=== PATIENT | female | born 1945 | race Caucasian/White ===

== ENCOUNTER 2016-08-21 09:09 | Day surgery (SDC) | payer MEDICARE ==
--- NOTE | 2016-08-20 09:34 | HP ---
DATE OF CLINIC: 08/08/2016 SUPRIYA CARRILLO : 1945 PLANNED PROCEDURE: Left carpal tunnel release DATE OF PROCEDURE: August 21, 2016 SURGEON: Dean Gallo M.D. PCP: Dr. Titi Thao HISTORY OF PRESENT ILLNESS Supriya Carrillo is a 70 year old female. * Medication list reviewed with patient allergy list reviewed with patient. 70-year-old female well-known to me for management of multiple orthopedic issues including bilateral total hip arthroplasties and bilateral total knee arthroplasties. She is over 8 years out from left TKA and left DELON. She is almost 8 years out from a right TKA and almost 4 years s/p right DELON. Other issues I have seen her for have included carpal tunnel syndrome. She is s/p a carpal tunnel release on the right side. She does have electrodiagnostic changes on the left and has scheduled carpal tunnel release. In addition, she complains of some bilateral basilar thumb discomfort, atraumatic. She has had help using a cock up wrist splint at night. She continues to struggle with fairly significant restless leg syndrome. She was on OxyContin, 80mg b.i.d which is now reduced to 20mg tid. In addition, she is on Amitriptyline and Clonazepam. She also has hypothyroidism and a history of mood disorder. After discussion and review of treatment options, both operative and non-operative, she has elected to proceed with surgery and presents today preoperatively. She has had no recent illnesses. CURRENT MEDICATION * Adult Aspirin EC Low Strength 81 MG Tablet Delayed Release 1 twice a day 0 days, 0 refills * Amitriptyline HCl 50 MG Tablet 1 once a day 0 days, 0 refills * B Complex Vitamins Capsule 1 once a day 0 days, 0 refills * Biotin 5000 MCG Capsule 2 once a day 0 days, 0 refills * ClonazePAM 0.5 MG Tablet as directed 1.5 tab a day, 0 days, 0 refills * ClonazePAM 1 MG Tablet as directed 1.5tab a day, 0 days, 0 refills * CoQ10 100 MG Capsule 1 once a day 0 days, 0 refills * Fish Oil 1000 MG Capsule 1 twice a day 0 days, 0 refills * Iron 325 (65 Fe) MG Tablet 1 once a day 0 days, 0 refills * Levothyroxine Sodium 175 MCG Tablet 1 once a day 0 days, 0 refills * Liothyronine Sodium 5 MCG Tablet 1 once a day 0 days, 0 refills * Magnesium Glycinate Powder as directed 4000mg 2 tabs a day, 0 days, 0 refills * Multi Vitamin Daily Tablet 1 once a day 0 days, 0 refills * OxyCODONE HCl ER 40 MG Tablet ER 12 Hour Abuse-Deterrent four times a day 8am, 1pm, 6pm & 11pm, 0 days, 0 refills * Potassium Gluconate 550 MG Tablet as directed [id number] 14 tabs a day, 0 days, 0 refills * Rolaids Antacid Ultra Strength 1000-200 MG/5ML Suspension 1 every bedtime 0 days, 0 refills * Savella 50 MG Tablet 1 twice a day 0 days, 0 refills * Vitamin C 1000 MG Tablet 1 twice a day 0 days, 0 refills * Vitamin D3 1000 Unit Capsule 2 once a day 0 days, 0 refills PAST MEDICAL/SURGICAL HISTORY Reported: Medical: Stomach problems ulcers, history of Arthritis knees and hips, Depression, and Thyroid Disorder. Surgical / Procedural: Surgical / procedural history lipoma removed 1981, 1982, Right ovarian cyst removed 1983, 1986, 2001, Sinus polyps 1991, Right knee scope cartilage 12/2002, right and left leg fibromas 06/2003, Right knee MM repair 01/2004, right ovary removed 05/2004, left knee MM repair 01/2005, Right shoulder RCR 08/2005 and Carpal Tunnel Surgery Right CTR 05/17/[address] Gallo. Diagnoses: Thyroid disorder. Depression. Anemia Total Left Hip Replacement 10/2007. SOCIAL HISTORY Behavioral: Never smoked. Smoking status: Never smoker. Work: Occupation retired. ALLERGIES * Bandaging Tape Reaction: Skin Rashes/Hives, adhesive * Buprenorphine Reaction: sweating, dizzy, anxious * Cephalexin Reaction: Nausea/Vomiting/Diarrhea * Cipro Reaction: Skin Rashes/Hives * Depakote Reaction: Pain * Nortriptilline Reaction: sweating * Provigil Reaction: pain everywhere * SEROquel Reaction: tardive dyskinesia FAMILY HISTORY Mother ill Blood clots [place], depression 2 children living Cancer mother,father sibling Heart disease father Family medical history thyroid mother Mental illness (not retardation) mother,sibling REVIEW OF SYSTEMS Systemic: No fever and no recent weight change. Head: No head symptoms. Cardiovascular: No cardiovascular symptoms. Pulmonary: No pulmonary symptoms. Gastrointestinal: No gastrointestinal symptoms. Psychological: No psychological symptoms. Skin: No skin lesions and no rash. PHYSICAL FINDINGS * Vitals taken 08/08/2016 01:49 pm BP-Sitting L 130/67 mmHg 100 - 120/56 - 80 BP Cuff Size Regular Pulse Rate-Sitting 87 bpm 50 - 100 Temp-Oral 97.3 F 96 - 101 Height 64.5 in 59 - 68 Weight 223 lbs 95 - 175 Body Mass Index 37.7 kg/m2 Body Surface Area 2.06 m2 Pain Level 0 Ears, Nose, Throat: * ENT: normal. Lungs: * Clear to auscultation. Cardiovascular: Heart Rate and Rhythm: * Normal. Abdomen: * Normal. Neurological: Motor: * Dominant Hand = Right Hand. Patient is an obese female in no acute distress, normal-appearing mood and affect. Evaluation of the left hand and wrist shows mild thenar asymmetry. She is tender over the 1st CMC articulation with a positive 1st metacarpal grind. She can oppose to the base of the 5th with full extension and abduction. This is comparable to the contralateral side. She does have a positive Phalen's test with exacerbation of symptoms in the median nerve distribution at approximately 15 seconds. She does have some mild resting median sensory changes as well. Radial pulses 2+. Capillary refill is brisk. Ulnar function appears normal. She has an equivocal Tinel's at the wrist. Forearm is soft and NT. Negative Tinel's at the elbow with a negative elbow flexion test. Spurling's test is negative. TESTS No new imaging regarding the left wrist. Patient does have known electodiagnostic changes. ASSESSMENT Left carpal tunnel syndrome. 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 THERAPY * Patient fall risk screen negative. * Patient eligible for fall risk assessment. * Patient received fall risk assessment. PLAN Left carpal tunnel release. Discussed with patient in detail the limitations, expectations as well as risks and possible complications of surgery including, but not limited to wound problems or infection, neurovascular injury, continued pain or paresthesias including the possibility that over time this may require additional operative or non-operative treatment. Patient also realizes the perioperative risks including risks associated with anesthesia and would like to proceed. A full PAR conference was held, questions and concerns addressed and informed consent was obtained. Patient will be sent from my office for completion of the preoperative workup. CARE TEAM Jose F ROMERO [facility] Titi Thao MD Internal Medicine Rocky Villagomez MD Hematology & Oncology Dean Gallo MD Orthopaedic Surgery LACHELLE/sg
[~2016-08-21 09:09] MED LIST: CEFAZOLIN SODIUM 2 GRAM PREMIX 100 ML IV PRN
[2016-08-21] MEDS ORDERED: LACTATED RINGERS 1,000 ML ONE (09:16)
[2016-08-21] MEDS ORDERED: IV START KIT ONE ×2 (09:16→09:28)
[2016-08-21] MEDS ORDERED: CEFAZOLIN SODIUM 2 GRAM PREMIX 100 ML IV ONE (09:17)
[2016-08-21] MEDS ORDERED: TRIAMCINOLONE ACETONIDE 40 MG/1 ML IF ONE (09:30)
[2016-08-21] MEDS ORDERED: MIDAZOLAM HCL 1 MG/ML 2ML VIAL ONE (09:46)
[2016-08-21] MEDS ORDERED: LIDOCAINE 0.5% (PRES FREE) 50 ML VIAL ONE (09:49)
[2016-08-21] MEDS ORDERED: BUPIVACAINE 0.5% (PRES FREE) 30 ML VIAL ONE (10:02)
[2016-08-21] MEDS ORDERED: LIDOCAINE 2% (PRES FREE) 5 ML VIAL ONE (10:23)
[2016-08-21] MEDS ORDERED: PROPOFOL 20 ML IV ONE (10:23)
[2016-08-21] MEDS ORDERED: KETAMINE HCL UD SYRINGE 100 MG/2 ML IV ONE (10:24)
[2016-08-21] MEDS ORDERED: FENTANYL 100 MCG/2 ML VIAL ONE (10:42)
[2016-08-21] MEDS ORDERED: ONDANSETRON 4 MG/2ML 2 ML VIAL IV PRN (10:49)
[2016-08-21] MEDS ORDERED: FENTANYL 100 MCG/2 ML VIAL IV PRN (10:49)
[2016-08-21] MEDS ORDERED: NALOXONE HCL 0.4 MG/ML VIAL IV PRN (10:49)
[2016-08-21] MEDS ORDERED: PROMETHAZINE HCL 25 MG/ML VIAL IM PRN (10:49)
[2016-08-21] MEDS ORDERED: ATROPINE SULFATE 0.4 MG/1 ML VIAL IV PRN (10:49)
[2016-08-21] MEDS ORDERED: LACTATED RINGERS 1,000 ML IV SCH (11:00)
--- NOTE | 2016-08-21 11:23 | PCMBPN ---
Brief Post Op Note: Date of Procedure: 08/21/16 Preoperative Diagnosis: left CTS DJD LD1 CMC Postoperative Diagnosis: Same Procedure: left CTR inject LD1 CMC Surgeon: Dean Gallo MD Anesthesia: IV block (Manny) Condition: stable to PAR Complications: none IV Fluids: per anesthesia Estimated Blood Loss: nil Tourniquet Time: <30 minutes Specimens: none Drains: none
[2016-08-21] MEDS ORDERED: ACETAMINOPHEN 325 MG TABLET PO PRN (11:26)
[2016-08-21] MEDS ORDERED: KETOROLAC TROMETHAMINE 30 MG/ML 1 ML VIAL IV PRN (11:26)
[2016-08-21] MEDS ORDERED: HYDROMORPHONE HCL 1 MG/ML SYRINGE IV PRN (11:26)
[2016-08-21] MEDS ORDERED: SODIUM CHLORIDE 0.9% 1,000 ML IV SCH (11:26)
[2016-08-21] MEDS ORDERED: HYDROCODONE/ACETAMINOPHEN 5/325MG TABLET PO PRN (11:26)
[2016-08-21] MEDS ORDERED: HYDROCODONE/ACETAMINOPHEN 5/325MG TABLET ONE (11:56)
--- NOTE | 2016-08-22 09:49 | OP ---
GONZALO CABAN [id number] : 1945 DATE OF SURGERY: August 21, 2016 PREOPERATIVE DIAGNOSIS: Left carpal tunnel syndrome. POSTOPERATIVE DIAGNOSIS: SAME PROCEDURE: Left carpal tunnel release. SURGEON: Dean Gallo M.D. ESTIMATED BLOOD LOSS: Nil ANESTHESIA: IV block per [place]. TOURNIQUET TIME: Less than 30 minutes FLUIDS: IV fluid placed per anesthesia. DRAINS: None COMPLICATIONS: None INDICATIONS: Patient is a 70-year-old female with clinical and electrodiagnostic evidence consistent with median nerve compression of the left transverse carpal ligament. Patient has failed nonoperative management and desires elective surgical treatment. PAR conference was held, questions and concerns addressed and informed consent obtained. PROCEDURAL DESCRIPTION: Patient was taken to the operating room. An IV block was placed after exsanguination of the limb per anesthesia and inflation of an upper arm tourniquet without complication. The upper extremity was then prepped and draped out in the usual sterile fashion. A longitudinal incision was made distal to the wrist flexion crease in line with the radial border of the 4th ray. Loupe magnification was used to help facilitate dissection and throughout the procedure. We sharply dissected through palmar fascia down to the transverse carpal ligament which was opened in its entirety under direct visualization from proximal to distal. The underlying nerve was obviously compressed, but morphologically appeared grossly healthy. No other abnormalities were seen. We irrigated and closed in a single layer with interrupted 4-0 Nylon. A sterile compression dressing was applied. The tourniquet was sequentially released. The patient was transferred to their hospital bed and sent to post anesthesia recovery in stable condition. They tolerated the procedure well. Sponge, instrument and needle count were correct. LACHELLE/mrw CC: Misa Thao MD
== END 2016-08-21 19:52 | disposition home or self-care (01) ==
LOC: SDC 09:09
PROVIDERS: ATTEND Orthopaedic Surgery
PROC: 01N50ZZ Release Median Nerve, Open Approach (ICD-10-PCS; principal; 2016-08-21)
PROC: 3E0U33Z Introduction of Anti-inflammatory into Joints, Percutaneous Approach (ICD-10-PCS; 2016-08-21)
DX: G56.02 Carpal tunnel syndrome, left upper limb (principal); M18.9 Osteoarthritis of first carpometacarpal joint, unspecified; G25.81 Restless legs syndrome; Z79.891 Long term (current) use of opiate analgesic; E03.9 Hypothyroidism, unspecified; Z79.82 Long term (current) use of aspirin; F32.89 Other specified depressive episodes; Z88.1 Allergy status to other antibiotic agents; Z88.8 Allergy status to other drugs, medicaments and biological substances
CPT/HCPCS: 64721; 20600; J3010; J3301; J2250; J2001; J7120; A9270; J0690